=== PATIENT | female | born 2000 | race African-American/Black ===

== ENCOUNTER 2022-03-25 07:30 | Inpatient (IN) | payer OTHER, BC ==
[2022-03-25 08:10] VITALS: BMI 24.3
[2022-03-25] MEDS ORDERED: ELECTROLYTE-148 SOLN 1,000 ML IV SCH (08:30)
[2022-03-25] MEDS ORDERED: OXYTOCIN 30 UNITS in 0.9% NS 30 UNIT/500 ML INFUS.BAG IVPB SCH (08:30)
[2022-03-25] MEDS ORDERED: OXYTOCIN 30 UNITS in 0.9% NS 30 UNIT/500 ML INFUS.BAG IVPB ONE (08:37)
[2022-03-25] MEDS ORDERED: FENTANYL/BUPIVACAINE/NS/PF - PCEA - 50 ML DISP.SYRIN EP ONE ×3 (14:37→18:52)
[2022-03-25] MEDS ORDERED: BUPIVACAINE HCL/PF 0.25% (2.5MG/ML) 10 ML VIAL ONE (15:02)
[2022-03-25] MEDS ORDERED: NALOXONE HCL 0.4 MG/ML VIAL IVPUSH PRN (15:25)
[2022-03-25] MEDS ORDERED: FENTANYL/BUPIVACAINE/NS/PF - PCEA - 50 ML DISP.SYRIN EP SCH (15:30)
[2022-03-25 17:55] LABS: METHADONE, UR NEGATIVE (NEGATIVE); URINE BENZODIAZEPINES NEGATIVE (NEGATIVE)
[2022-03-25 17:56] LABS: OPIATES, URI NEGATIVE (NEGATIVE); PHENCYCLIDINE,URINE NEGATIVE (NEGATIVE); URINE BARBITURATES NEGATIVE (NEGATIVE)
[2022-03-25 17:57] LABS: COCAINE, UR NEGATIVE (NEGATIVE); URINE AMPHETAMINES NEGATIVE (NEGATIVE)
[2022-03-25] MEDS ORDERED: LIDOCAINE HCL/EPINEPHRINE/PF 20 ML VIAL ONE (19:41)
[2022-03-25] MEDS ORDERED: LIDOCAINE HCL 1% PRESERVATIVE FREE - 30ML VIAL ONE (21:29)
[2022-03-25] MEDS ORDERED: OXYTOCIN 20 UNITS in 0.9% NS 20 UNIT/1,000 ML INFUS.BAG IV ONE (21:29)
[2022-03-25] MEDS ORDERED: ACETAMINOPHEN 325 MG TABLET (FP) PO PRN (22:04)
[2022-03-25] MEDS ORDERED: BISACODYL 10 MG SUPP.RECT RC PRN (22:04)
[2022-03-25] MEDS ORDERED: BENZOCAINE 28 GM HEMORRHOIDAL OINTMENT TP PRN (22:04)
[2022-03-25] MEDS ORDERED: oxyCODONE HCL 5 MG TABLET PO PRN (22:04)
[2022-03-25] MEDS ORDERED: BENZOCAINE 20% 57 GM BOTTLE TP PRN (22:04)
[2022-03-25] MEDS ORDERED: METHYLERGONOVINE MALEATE 0.2 MG/1 ML AMP IM PRN (22:04)
[2022-03-25] MEDS ORDERED: WITCH HAZEL 50% (TUCKS) 40 PAD/JAR PAD TP PRN (22:04)
[2022-03-25] MEDS ORDERED: OXYTOCIN 20 UNITS in 0.9% NS 20 UNIT/1,000 ML INFUS.BAG IV SCH (22:15)
[2022-03-26] MEDS: IBUPROFEN 600 MG TABLET (FP) PO PRN ×2 (01:04→14:15)
[2022-03-26 08:35] LABS: BASO % 0.8 % (0-2.0); HEMATOCRIT 28.3 % (32.4-45.2); HEMOGLOBIN 9.2 GM/dL (10.7-15.3); LYMPH % 17.7 % (8-40); MCH 24.3 pg (25.7-33.7); MCHC 32.3 g/dl (32.0-36.0); MEAN CELL VOLUME 75.1 fl (80-96); MEAN PLT VOLUME 8.6 fl (7.5-11.1); MONO % 10.6 % (3.8-10.2); NEUT % 65.9 % (42.8-82.8); PLATELET COUNT 161 10^3/uL (134-434); RBC 3.77 M/mm3 (3.60-5.2); RDW 16.5 % (11.6-15.6); WHITE BLOOD COUNT 10.6 K/mm3 (4.0-10.0)
[2022-03-26] MEDS ORDERED: SENNOSIDES/DOCUSATE COMBO (SENNA PLUS) TABLET (UD) PO PRN (22:00)
[2022-03-27] MEDS: IBUPROFEN 600 MG TABLET (FP) PO PRN (05:36)
[2022-03-27 13:21] VITALS: BP 115/69; PULSE 80; TEMP 98
== END 2022-03-27 18:32 | disposition home or self-care (01) | DRG 373 ==
LOC: JLDR 07:30 → J3W 03-26 00:35
PROVIDERS: ADMIT Specialist; ATTEND Specialist
PROC: 10E0XZZ Delivery of Products of Conception, External Approach (ICD-10-PCS; principal; 2022-03-25)
PROC: 3E033VJ Introduction of Other Hormone into Peripheral Vein, Percutaneous Approach (ICD-10-PCS; 2022-03-25)
PROC: 10907ZC Drainage of Amniotic Fluid, Therapeutic from Products of Conception, Via Natural or Artificial Opening (ICD-10-PCS; 2022-03-25)
DX: O70.0 First degree perineal laceration during delivery (principal); Z3A.39 39 weeks gestation of pregnancy; Z37.0 Single live birth
CPT/HCPCS: 36415; 59409; 80307; 85025